=== PATIENT | male | born 1990 | race American Indian/Alaskan Native ===

== ENCOUNTER 2016-03-19 21:50 | Emergency (ER) | payer BC ==
[2016-03-19 22:00] VITALS: BP 140/75
[2016-03-19 22:55] LABS: Bilirubin,Urine NEG (Negative); Blood,Urine SM (Negative); Ketones,Urine NEG (Negative); Leukocyte Esterase,Urine NEG (Negative); Mucus,Urine 2+ /HPF; Nitrite,Urine NEG (Negative)
[2016-03-19 23:03] LABS: Basophils % (Auto) 0.2 % (0.0-1.8); Hematocrit 49.9 % (35.5-45.6); Hemoglobin 16.2 gm/dl (11.8-15.2); Mean Corpuscular HGB Conc 33 % (32-34); Mean Corpuscular Volume 78 fl (84-94); Platelet Count 103 K/mm3 (140-440); Red Blood Count 6.43 M/mm3 (3.65-5.03); White Blood Count 5.8 K/mm3 (4.5-11.0)
[2016-03-19 23:05] LABS: Mean Corpuscular Hemoglobin 25 pg (28-32)
[2016-03-19 23:22] LABS: Alanine Aminotransferase 33 units/L (7-56); Albumin/Globulin Ratio 1.1 %; Alkaline Phosphatase 103 units/L (35-129); Bilirubin,Total 0.2 mg/dL (0.1-1.2); Blood Urea Nitrogen 10 mg/dL (9-20); Carbon Dioxide 25 mmol/L (22-30); Chloride 98.3 mmol/L (98-107); Glucose 101 mg/dL (75-100); Lipase 52 units/L (13-60); Potassium 4.2 mmol/L (3.6-5.0); Sodium 139 mmol/L (137-145); Total Protein 7.7 g/dL (6.3-8.2)
[2016-03-19 23:25] LABS: Anion Gap 20 mmol/L
--- NOTE | 2016-03-21 10:46 | ED Elopement Review ---
ED Pt Elopement review - Results review Lab results: Laboratory Tests 03/19/16 03/19/16 03/19/16 22:24 22:33 22:33 WBC 5.8 RBC 6.43 H Hgb 16.2 H Hct 49.9 H MCV 78 L MCH 25 L MCHC 33 RDW 14.0 Plt Count 103 L Lymph % (Auto) 21.5 [place] % (Auto) 14.4 H Eos % (Auto) 0.0 Baso % (Auto) 0.2 Lymph # 1.3 [place] # 0.8 Eos # 0.0 Baso # 0.0 Seg Neutrophils % 63.9 Seg Neutrophils # 3.7 Sodium 139 Potassium 4.2 Chloride 98.3 Carbon Dioxide 25 Anion Gap 20 BUN 10 Creatinine 0.8 Estimated GFR > 60 BUN/Creatinine Ratio 12.50 Glucose 101 H Calcium 9.0 Total Bilirubin 0.2 AST 106 H ALT 33 Alkaline Phosphatase 103 Total Protein 7.7 Albumin 4.0 Albumin/Globulin Ratio 1.1 Lipase 52 Urine Color Yellow Urine Turbidity Clear Urine pH 7.0 Ur Specific [place] 1.020 Urine Protein 100 mg/dl Urine Glucose (UA) Neg Urine Ketones Neg Urine Blood Sm Urine Nitrite Neg Urine Bilirubin Neg Urine Urobilinogen 2.0 Ur Leukocyte Esterase Neg Urine WBC (Auto) 2.0 Urine RBC (Auto) 4.0 Urine Mucus 2+ - Call Back decision Pt Call Back Decision: No action required
== END 2016-03-20 04:00 | disposition left against medical advice (07) ==
LOC: ED 21:50
DX: R05 Cough (principal); R68.83 Chills (without fever); M79.1 Myalgia; Z53.21 Procedure and treatment not carried out due to patient leaving prior to being seen by health care provider
CPT/HCPCS: 36415; 80053; 81001; 83690; 85025